=== PATIENT | female | born 1990 | race Caucasian/White ===

== ENCOUNTER 2020-10-30 15:25 | Day surgery (SDC) | payer MEDICAID, SELFPAY ==
--- NOTE | 2020-10-30 | COLBX_PTH ---
PATIENT: RUSSEL RAMIREZ LOC: EN U#:[id number] AGE/SX: 30/F ROOM: RE10/30/[address]: Dr. Mario Prasad DO : 1990 BED: DIS: 10/30/2020 SPEC #: [id number] RECD: 10/30/20 17:07 STATUS: RUI MARSHALLAnnamarie #: [id number] AMINA: 10/30/20 00:[address]: Mario Prasad DEPT: SURGICAL PATHOLOGY RECD BY: Zackery Maguire Tissues: A - Duodenum, NOS B - Ileum, NOS C - Sigmoid colon biopsy D - Rectum, NOS Procedures: Surgery Specimen Level IV HEADER OPERATION: Colonoscopy, EGD ([facility] [place]) PRE-OP DIAGNOSIS: Abdominal pain, constipation, weight loss, nausea, vomiting TISSUE SUBMITTED: A - Duodenum biopsy, B - Terminal ileum biopsy, C - Sigmoid colon polyp biopsy, D - Rectal polyp biopsy MICROSCOPIC DIAGNOSIS A. 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 B. Terminal ileum, biopsy: No pathologic change. C. Sigmoid colon polyp, biopsy: Hyperplastic polyp. D. Rectal polyp, biopsy: Hyperplastic polyp. AM:osmin 11/01/2020 MICROSCOPIC DESCRIPTION Slides are reviewed. GROSS DESCRIPTION A - Received in fixative is one container labeled with the patient's name and designated duodenum biopsy. The specimen consists of multiple irregular fragments of light marie soft tissue that in aggregate measure 1 x 0.3 x 0.1 cm. The specimen is totally submitted in one cassette. B - Received in fixative is one container labeled with the patient's name and designated terminal ileum biopsy. The specimen consists of multiple irregular fragments of light marie soft tissue that in aggregate measure 1.2 x 0.5 x 0.1 cm. The specimen is totally submitted in one cassette. C - Received in fixative is one container labeled with the patient's name and designated sigmoid colon polyp biopsy. The specimen consists of one irregular fragment of light marie soft tissue that measures 0.4 x 0.3 x 0.1 cm. The specimen is totally submitted in one cassette. D - Received in fixative is one container labeled with the patient's name and designated rectal polyp biopsy. The specimen consists of one irregular fragment of light marie soft tissue that measures 0.3 x 0.2 x 0.1 cm. The specimen is totally submitted in one cassette. / SJ:osmin 10/31/20 TC:5 [facility]: [id number] x4
[2020-10-30 15:43] VITALS: BP 142/69; PULSE 101; RESP 16; TEMP 36.6; O2SAT 99; BMI 33.4
[2020-10-30 15:57] LABS: Bedside Glucose 90 mg/dL (70-110)
[2020-10-30] MEDS: Lactated Ringers 1,000 ML 100 ML IV (15:57)
[2020-10-30 16:02] LABS: Internal QC Validated? YES +Cl - CLEAR BKGD
[2020-10-30 16:03] LABS: Pregnancy, Urine Negative Negative
[2020-10-30 16:56] VITALS: BP 131/82; BP 142/69; PULSE 96; RESP 16; TEMP 36.1; O2SAT 100
[2020-10-30 17:00] VITALS: BP 130/79; BP 142/69; PULSE 86; RESP 16; O2SAT 100
--- NOTE | 2020-10-30 17:01 | OP.EGD_ITS ---
Patient Name: Jory Renee Procedure Date: 10/30/2020 4:06 PM Date of : 1990 Age: 30 Procedure: Upper GI endoscopy Indications: Generalized abdominal pain Providers: Mario Prasad DO Medicines: Monitored Anesthesia Care Patient Profile: This is a 30 year old female. Refer to note in patient chart for documentation of history and physical. Patient has symptoms. The symptoms first began in the remote past. Complications: No immediate complications. Procedure: Pre-Anesthesia Assessment: - Prior to the procedure, a History and Physical was performed, and patient medications and allergies were reviewed. The patient is competent. The risks and benefits of the procedure and the sedation options and risks were discussed with the patient. All questions were answered and informed consent was obtained. Patient identification and proposed procedure were verified by the physician in the pre-procedure area. Mental Status Examination: normal. Respiratory Examination: clear to auscultation. CV Examination: normal. Prophylactic Antibiotics: The patient does not require prophylactic antibiotics. Prior Anticoagulants: The patient has taken no previous anticoagulant or antiplatelet agents. ASA Grade Assessment: I - A normal, healthy patient. After reviewing the risks and benefits, the patient was deemed in satisfactory condition to undergo the procedure. The anesthesia plan was to use moderate sedation / analgesia (conscious sedation). Immediately prior to administration of medications, the patient was re-assessed for adequacy to receive sedatives. The heart rate, respiratory rate, oxygen saturations, blood pressure, adequacy of pulmonary ventilation, and response to care were monitored throughout the procedure. The physical status of the patient was re-assessed after the procedure. After obtaining informed consent, the endoscope was passed under direct vision. Throughout the procedure, the patient's blood pressure, pulse, and oxygen saturations were monitored continuously. The gastroscope was introduced through the mouth, and advanced to the second part of duodenum. The upper GI endoscopy was accomplished without difficulty. The patient tolerated the procedure well. Moderate Sedation: Moderate (conscious) sedation was administered by the endoscopy nurse and supervised by the endoscopist. The patient's oxygen saturation, heart rate, blood pressure and response to care were monitored. Scope In: 4:18:08 PM Scope Out: 4:21:30 PM Total Procedure Duration Time 0 hours 3 minutes 22 seconds Findings: The examined esophagus was normal. The entire examined stomach was normal. Patchy mildly erythematous mucosa with no stigmata of bleeding was found in the duodenal bulb. Mild inflammation characterized by congestion (edema) was found in the duodenal bulb. Biopsies were taken with a cold forceps for histology. Verification of patient identification for the specimen was done by the physician using the patient's name and medical record number. Estimated blood loss: none. The exam of the esophagus was otherwise normal. The entire examined stomach was normal. Patchy mild inflammation characterized by congestion (edema) was found in the duodenal bulb. Biopsies were taken with a cold forceps for histology. Verification of patient identification for the specimen was done by the physician using the patient's name and medical record number. Estimated blood loss: none. Impression: - Normal esophagus. - Normal stomach. - Erythematous duodenopathy. - Chronic duodenitis. Biopsied. - Normal stomach. - Chronic duodenitis. Biopsied. Recommendation: - Discharge patient to home. - Resume regular diet. - Continue present medications. - Await pathology results. - Repeat upper endoscopy in 3 months to check healing. - Return to GI clinic in 2 weeks. Procedure Code(s): --- Professional --- 47490, Esophagogastroduodenoscopy, flexible, transoral; with biopsy, single or multiple CPT copyright 2017 [employer]. All rights reserved. The codes documented in this report are preliminary and upon ship engines operating engineer review may be revised to meet current compliance requirements. Mario Prasad DO 10/30/2020 5:00:21 PM This report has been signed electronically. Number of Addenda: 1 Note Initiated On: 10/30/2020 4:06 PM Addendum Number: 1 Addendum Date: 10/10/2021 3:55:26 PM MAC was used instead of moderate sedation for this patient. Mario Prasad DO 10/10/2021 3:55:36 PM This report has been signed electronically.
[2020-10-30 17:05] VITALS: BP 120/77; BP 142/69; PULSE 82; RESP 18; O2SAT 100
--- NOTE | 2020-10-30 17:07 | OP.COLON_ITS ---
Patient Name: Jory Renee Procedure Date: 10/30/2020 4:22 PM Date of : 1990 Age: 30 Procedure: Colonoscopy Indications: Generalized abdominal pain Providers: Mario Prasad DO Medicines: Monitored Anesthesia Care Patient Profile: This is a 30 year old female. Refer to note in patient chart for documentation of history and physical. Patient has symptoms. The symptoms first began in the remote past. She is status post non-endoscopic tube procedure. Last Colonoscopy: date unknown. Complications: No immediate complications. Procedure: Pre-Anesthesia Assessment: - Prior to the procedure, a History and Physical was performed, and patient medications and allergies were reviewed. The patient is competent. The risks and benefits of the procedure and the sedation options and risks were discussed with the patient. All questions were answered and informed consent was obtained. Patient identification and proposed procedure were verified by the physician in the pre-procedure area. Mental Status Examination: normal. Respiratory Examination: clear to auscultation. CV Examination: normal. Prophylactic Antibiotics: The patient does not require prophylactic antibiotics. Prior Anticoagulants: The patient has taken no previous anticoagulant or antiplatelet agents. ASA Grade Assessment: I - A normal, healthy patient. After reviewing the risks and benefits, the patient was deemed in satisfactory condition to undergo the procedure. The anesthesia plan was to use moderate sedation / analgesia (conscious sedation). Immediately prior to administration of medications, the patient was re-assessed for adequacy to receive sedatives. The heart rate, respiratory rate, oxygen saturations, blood pressure, adequacy of pulmonary ventilation, and response to care were monitored throughout the procedure. The physical status of the patient was re-assessed after the procedure. After I obtained informed consent, the scope was passed under direct vision. Throughout the procedure, the patient's blood pressure, pulse, and oxygen saturations were monitored continuously. The colonoscope was introduced through the anus and advanced to the terminal ileum. The colonoscopy was performed without difficulty. The patient tolerated the procedure well. The quality of the bowel preparation was good. Moderate Sedation: Moderate (conscious) sedation was administered by the endoscopy nurse and supervised by the endoscopist. The patient's oxygen saturation, heart rate, blood pressure and response to care were monitored. Scope In: 4:25:30 PM Scope Withdrawal Time 0 hours 14 minutes 43 seconds Scope Out: 4:43:53 PM Total Procedure Duration Time 0 hours 18 minutes 23 seconds Findings: The perianal and digital rectal examinations were normal. Pertinent negatives include normal sphincter tone. The colon (entire examined portion) was moderately tortuous. A patchy area of the mid ileum was congested. The exam was otherwise without abnormality. Impression: - Tortuous colon. - Congested mucosa in the mid ileum. - The examination was otherwise normal. - No specimens collected. - Two benign appearing, non-bleeding polyps in the rectum and in the sigmoid colon, removed with a jumbo cold forceps. Resected and retrieved. Biopsied. Recommendation: - Discharge patient to home. - Resume regular diet. - Continue present medications. - Await pathology results. - Use original regular Metamucil one teaspoon PO BID for 2 months. - Return to GI office in 2 weeks. - Repeat colonoscopy in 5 years for surveillance based on pathology results. Procedure Code(s): --- Professional --- 40398, Colonoscopy, flexible; diagnostic, including collection of specimen(s) by brushing or washing, when performed (separate procedure) CPT copyright 2017 [employer]. All rights reserved. The codes documented in this report are preliminary and upon advertising agency manager review may be revised to meet current compliance requirements. Mario Prasad DO 10/30/2020 5:07:22 PM This report has been signed electronically. Number of Addenda: 1 Note Initiated On: 10/30/2020 4:22 PM Addendum Number: 1 Addendum Date: 10/10/2021 4:00:51 PM MAC was used instead of moderate sedation for this patient. Mario Prasad DO 10/10/2021 4:01:13 PM This report has been signed electronically.
--- NOTE | 2020-10-30 17:08 | SUR.PHASEI ---
ANGRY, BELLIGERENT, TEARFUL CALLING NURSES RUDE.. BITCH.. ASSHOLE, DEMANDING TO GO HOME IMMEDIATELY. ATTEMPTING TO CONSOLE, EDUCATE & DISTRACT.
[2020-10-30 17:14] VITALS: BP 115/77; BP 142/69; PULSE 71; RESP 18; TEMP 35.9; O2SAT 100
[2020-10-30 17:28] VITALS: BP 142/69
--- NOTE | 2020-10-31 10:28 | PCM.HP.STD ---
HPI - General HPI Narrative RUSSEL RAMIREZ, is a 30 F who presents ominal pain Friend, Mario [facility] 10/26/20 09:12 Other Reports 30, F0 1990 DEP SDC, EN 5ft 2in 182lb 12.211oz BSA: 1.97m? BMI: 33.4kg/m? Search Chart hives swelling unknown unknown ONSET 10/30/20 17:14 RUSSEL RAMIREZ 30 F 1990 Sign [facility] [id number] [place] [address] OFFICE VISITDate of Service: 10/26/20 MR#:[id number]:[id number]: Elsie RAMIREZp #:[id number]:1990 Provider:Mario Friend, DOAge/Sex: 30/F [facility] [place]BGIStatus:Signed Intake Vital Signs 10/26/20 09:18 Height 5 ft 3 in Weight: 185 lb 8 oz BMI 32.8 BP 127/82 H Blood Pressure Location Lt brachial Position Sitting Respiration 16 Pulse 95 Pulse Source Monitor Oxygen Delivery Method room air Intake Visit Reasons: Abdominal pain (pedi) Chief Complaint: Abdominal Pain [employer] Required: No Is patient in pain?: Yes (Abdominal pain and pressure) Pain scale (1-10): 7 Allergies amoxicillin Allergy (Intermediate, Verified 10/26/20 09:14) hives codeine Allergy (Intermediate, Verified 10/26/20 09:14) swelling Penicillins Allergy (Intermediate, Verified 10/26/20 09:14) unknown prednisone Allergy (Intermediate, Verified 10/26/20 09:14) unknown Medications bisacodyl 5 mg tablet,delayed release 5 mg PO ONCE #4 tab 10/26/20 [Rx Confirmed 10/26/20] metformin 500 mg tablet 500 mg PO BID 10/26/20 [History Confirmed 10/26/20] peg 3350-electrolytes 236 gram-22.74 gram-6.74 gram-5.86 gram solution 240 ml PO Q10M #4000 ml 10/26/20 [Rx Confirmed 10/26/20] vitamins no.121-iron 28 mg-folic acid 800 mcg tablet tab PO 10/26/20 [History Confirmed 10/26/20] Post menopausal: No Patient : Yes Nurse's Note: [facility] Medical History (Updated 10/26/20 @ 09:[address] Martin Friend, DO) Abdominal pain Asthma Constipation Diabetes Hx: UTI (urinary tract infection) Surgical History (Updated 10/26/20 @ 09:12 by Jaqueline Baugh) History of ankle surgery History of appendectomy Social History (Updated 10/26/20 @ 09:12 by Jaqueline Baugh) Smoking Status: Current every day smoker HPI HPI Chief Complaint: Abdominal Pain Details: RUSSEL RAMIREZ, is a 30 F who presents to the office today for Symptoms started two days ago during the night and had a lot of abdominal pain and pressure. Nausea on day one with no emesis, no further episodes of nausea. Denies constipation and diarrhea. States bowel movements the last two days but they have been smaller than normal. Went to the hospital and they were unable to obtain a diagnosis after work up and referred to gastroenterology. She says that she has been constipated all her life. She has gone 87 days without having a bowel movement. She has a past medical history of type 2 diabetes and PCOS. At this time she is struggling with infertility. She typically goes to the bathroom every week. Recently it is becoming concerning because she is lost 16 pounds in the last couple weeks due to inability to eat. She had a CT scan of the abdomen pelvis as an outpatient and it did not show any signs of obstructive disease. She has not had any belly surgeries. She has no family history of GI issues. Typically when she eats she gets crampy abdominal pain followed by nausea and she immediately stops eating. She denies any chest pain or shortness of breath. ROS Const Constitutional: Positive for weight change (weight loss) Eyes Eyes: No change in vision ENT ENT: No abnormal hearing, difficulty swallowing, mouth lesions, tongue swelling or throat swelling Resp Respiratory: No cough or shortness of breath Cardio Cardiology: No chest pain at rest, chest pain with exertion, shortness of breath or dyspnea on exertion Gastro GI: Positive for abdominal pain, bloating, change in bowel habits, constipation, heartburn and nausea/dyspepsia; No difficulty swallowing Genitourinary-Female: No difficulty urinating or burning urination Musc Musculoskeletal: Positive for back pain, muscle cramps and muscle weakness Skin Skin: No hair loss in leg, yellowing of the eye, itchy eyes, rash, skin ulcer or skin swelling Neuro Neurology: No abnormal hearing, abnormal movements, confusion, unsteady gait/balance or memory loss Psych Psychiatric: No anxiety, No confusion and No memory loss Endo Endocrine: Positive for weight change (weight loss) Aller/Imm Allergy/Immunologic: No itchy eyes, throat swelling or tongue swelling Jose G/Lymp Hematologic/Lymphatic: Positive for easy bruising Exam Const General: cooperative and comfortable Nutritional Appearance: average body habitus and well nourished HENMT Head: normal to inspection Ears: hearing grossly normal bilaterally Nose: external nose normal Face and sinus: normal facial exam Mouth: oral mucosae normal Throat: posterior oropharynx normal Eyes General: appearance normal, both eyes and all related structures Neck Neck: normal visual inspection Chest Chest palpation & inspection: normal inspection of the chest and normal palpation of entire chest wall Resp Effort & Inspection: normal respiratory effort Auscultation: Bilateral: Clear to Auscultation Cardio Palpation: normal PMI Rate: regular rate Rhythm: regular rhythm GI Inspection: normal to inspection Auscultation: normal bowel sounds Percussion: normal to percussion Palpation: no hepatosplenomegaly Skin General: no rashes or lesions noted Neuro General: patient alert Extrem General: normal to inspection Psych Affect: normal affect Assessment and Plan Assessment and Plan (1) Abdominal pain: Plan - Dr. Martin Friend, DO: Her abdominal pain is likely multi factorial. She has a history of chronic idiopathic constipation. The differential diagnosis for that since she had it was a kid and short segment Hirschsprung's, very redundant bowel, pelvic floor dysfunction and slow transit constipation. Status: Acute (2) Abdominal pain: Status: Acute (3) Constipation: Status: Acute Plan - Dr. Martin Friend, DO: She will undergo colonoscopy to evaluate her colon. She was explained that she will need to go on aggressive bowel regimen so she can have a bowel movement every day. She has gone as long as 87 days without going to the bathroom and that is extremely abnormal to the point that she is putting herself at risk for a colostomy. (4) Nausea and vomiting: Status: Acute Plan - Dr. Martin Friend, DO: Because she has poorly controlled diabetes she is at risk for gastroparesis. Will evaluate her upper GI tract to see if there is any signs of delayed gastric emptying from pyloric stenosis, gastric ulcer secondary to H. pylori or delayed gastric emptying from diabetes. (5) Weight loss: Status: Acute Plan - Dr. Martin Friend, DO: Her weight loss is concerning. We will evaluate her for a malabsorptive disease. In particular celiac sprue, small bacterial overgrowth and we will also get stool studies to see if she has any signs of malabsorption. Plan Details Other Medications: New: peg 3350-electrolytes 236-22.74-6.74 -5.86 gram (Golytely) until fecal effluent is clear 240 mL PO Q10M 4,000 mL 0RF bisacodyl 5 mg PO ONCE 4 tabs 0RF This is an updated H&P nothing has changed since she was seen as an outpatient. Thank you very much for allowing me to participate in the care of his patient. [facility] Medical History (Updated 10/29/20 @ 08:36 by Amena Love) Abdominal pain Anxiety Asthma Constipation Depression Diabetes Dietary restriction Easy bruising Gastric reflux History of pain when walking Hx of reduction of nasal fracture Hx of vertigo Hx: UTI (urinary tract infection) Low iron Migraine headache Smoker Wears contact lenses Wears glasses Home Medications metformin 500 mg tablet 500 mg PO BID 10/26/20 [History Last Taken Unknown] peg 3350-electrolytes 236 gram-22.74 gram-6.74 gram-5.86 gram solution 240 ml PO Q10M #4000 ml 10/26/20 [Rx Last Taken Unknown] vitamins no.121-iron 28 mg-folic acid 800 mcg tablet 1 tab PO DAILY 10/26/20 [History Last Taken Unknown] peg-electrolyte solution 420 gram oral solution 240 ml PO Q10M #4000 ml 10/27/20 [Rx Last Taken Unknown] albuterol sulfate 1 inh INHALATION Q6H PRN 10/29/20 [History Last Taken Unknown] metoclopramide HCl 5 mg tablet 5 mg PO Q4H #30 tab 10/29/20 [Rx Last Taken Unknown] omeprazole 20 mg PO DAILY 10/29/20 [History Last Taken Unknown] Allergy/AdvReac Type Severity Reaction Status Date / Time amoxicillin Allergy Intermediate hives Verified 10/30/20 15:40 codeine Allergy Intermediate swelling Verified 10/30/20 15:40 Penicillins Allergy Intermediate unknown Verified 10/30/20 15:40 prednisone Allergy Intermediate unknown Verified 10/30/20 15:40 Surgical History (Updated 10/29/20 @ 08:36 by Amena Love) History of ankle surgery History of appendectomy History of tonsillectomy and adenoidectomy Hx of myringotomy Social History (Updated 10/26/20 @ 09:12 by Jaqueline Baugh) Smoking Status: Current every day smoker tobacco type: cigarettes Vital Signs Vital Signs Vital Signs: 10/30/20 15:43 10/30/20 16:56 10/30/20 17:00 Temperature 97.9 F 97.0 F L Temperature Source Temporal Temporal Pulse Rate 101 H 96 86 Respiratory Rate 16 16 16 Respiratory Pattern Normal Normal Blood Pressure 142/69 H 131/82 H 130/79 H Blood Pressure Mean 93 98 96 Blood Pressure Source Monitor Monitor Monitor Blood Pressure Position Sitting Semi-Fowlers Semi-Fowlers Blood Pressure Location Right Arm Left Arm Left Arm Baseline BP 142/69 142/69 Pulse Ox 99 100 100 Oxygen Delivery Method Room Air Room Air Room Air 10/30/20 17:05 10/30/20 17:14 10/30/20 17:18 Temperature 96.6 F L Temperature Source Temporal Pulse Rate 82 71 Respiratory Rate 18 18 Respiratory Pattern Normal Blood Pressure 120/77 115/77 Blood Pressure Mean 91 89 Blood Pressure Source Monitor Monitor Blood Pressure Position Semi-Fowlers Semi-Fowlers Blood Pressure Location Left Arm Left Arm Baseline BP 142/69 142/69 Pulse Ox 100 100 Oxygen Delivery Method Room Air Room Air 10/30/20 17:28 Temperature Temperature Source Temporal Pulse Rate Respiratory Rate Respiratory Pattern Blood Pressure Blood Pressure Mean Blood Pressure Source Monitor Blood Pressure Position Blood Pressure Location Baseline BP 142/69 Pulse Ox Oxygen Delivery Method Room Air Weight Weight: 182 lb 12.211 oz Body Mass Index (BMI) 33.4 Results Lab / Micro Data Labs: Laboratory Results - last 24 hr 10/30/20 15:44: POC Glucose 90 10/30/20 : Urine Test Negative
== END 2020-10-30 17:30 | disposition home or self-care (01) ==
LOC: EN 15:29 → AC 15:30
PROVIDERS: Anesthesiology; Referring Provider Internal Medicine Gastroenterology; Visit Provider Internal Medicine Gastroenterology
PROC: 0DJD8ZZ Inspection of Lower Intestinal Tract, Via Natural or Artificial Opening Endoscopic (ICD-10-PCS; CPT 45378; principal; 2020-10-30 15:25)
DX: K29.80 Duodenitis without bleeding (principal); K63.5 Polyp of colon; K62.1 Rectal polyp; K59.04 Chronic idiopathic constipation; K21.9 Gastro-esophageal reflux disease without esophagitis; Q43.8 Other specified congenital malformations of intestine; R10.84 Generalized abdominal pain; R11.2 Nausea with vomiting, unspecified; R63.4 Abnormal weight loss; E11.9 Type 2 diabetes mellitus without complications; F17.210 Nicotine dependence, cigarettes, uncomplicated; Z68.33 Body mass index [BMI] 33.0-33.9, adult; Z79.84 Long term (current) use of oral hypoglycemic drugs; Z79.899 Other long term (current) drug therapy
CPT/HCPCS: 43239; 45380; 81025; 82962; 88305; J7120; J2405